=== PATIENT | female | born 1965 | race Caucasian/White ===

== ENCOUNTER → 2017-02-10 | Outpatient (CLI) | payer BC ==
[~2017-02-10] VITALS: Ht 152.4 cm; Wt 90.7 kg
[~2017-02-10] MED LIST: ADVIL200 MG PO; CATAPRES0.2 MG PO; EFFEXOR XR150 MG PO; ENDOCET 5-3251 EACH PO; FENOFIBRATE54 M1 PO; IBUPROFEN800 MG PO; MULTIPLE VITAM1 EACH PO; SYNTHROID88 MCG PO; TRAZODONE HCL50 MG PO; VENTOLIN HFA18 GM IH; ZYBAN 150 MG T150 MG PO
== END | disposition home or self-care (01) ==
LOC: AMB 13:27
PROC: 0DBE8ZX Excision of Large Intestine, Via Natural or Artificial Opening Endoscopic, Diagnostic (ICD-10-PCS; principal; 2017-02-10)
DX: K51.00 Ulcerative (chronic) pancolitis without complications (principal); K62.5 Hemorrhage of anus and rectum; R93.8 Abnormal findings on diagnostic imaging of other specified body structures; E78.2 Mixed hyperlipidemia; I10 Essential (primary) hypertension; E66.9 Obesity, unspecified; Z68.38 Body mass index [BMI] 38.0-38.9, adult; Z80.0 Family history of malignant neoplasm of digestive organs; Z81.8 Family history of other mental and behavioral disorders; Z83.3 Family history of diabetes mellitus; Z82.0 Family history of epilepsy and other diseases of the nervous system
CPT/HCPCS: 88305; 93005; J2250; J3010